=== PATIENT | female | born 1990 | race Caucasian/White ===

== ENCOUNTER 2019-12-28 14:01 | Emergency (ER) | payer OTHER ==
[~2019-12-28] VITALS: Ht 172.7 cm; Wt 82.1 kg
[2019-12-28] MEDS ORDERED: DORYX MPC120 MG PO (14:16)
[2019-12-28] MEDS ORDERED: CENTANY30 GM TOP (14:54)
[2019-12-28 15:07] VITALS: BP 119/76
== END 2019-12-28 15:08 | disposition home or self-care (01) ==
LOC: M.ERS 14:01
DX: S71.101A Unspecified open wound, right thigh, initial encounter (principal); F17.210 Nicotine dependence, cigarettes, uncomplicated; Z88.1 Allergy status to other antibiotic agents; X58.XXXA Exposure to other specified factors, initial encounter; Y93.89 Activity, other specified; Y92.89 Other specified places as the place of occurrence of the external cause; Y99.8 Other external cause status